=== PATIENT | male | born 1985 | race Caucasian/White ===

== ENCOUNTER → 2021-05-11 | Outpatient (CLI) | payer BC ==
--- NOTE | 2021-05-12 05:47 | MR ---
EXAMINATION TYPE: MR iac wo/w con DATE OF EXAM: 05/11/2021 COMPARISON: None HISTORY: Migraines, balance issues, vertigo for years. CONTRAST: Standard multiplanar, multisequence MRI departmental protocol images were obtained without contrast a nd with 15 mL intravenous Gadavist gadolinium contrast. Ventricles of normal size. There is no mass effect or midline shift. There is no sign of intracranial hemorrhage. Calvarium is intact. There is normal signal pattern of the brainstem. The corpus callosu m is intact. Sella turcica appears normal. There is no evidence of orbital mass. The internal auditory canals appear normal. There is no evidence of cerebellopontine angle mass. Acou stic nerve and vestibular nerve appear normal. Mastoid sinuses have normal signal pattern. No evidenc e of mastoiditis. Contrast images show no pathologic enhancement. IMPRESSION: Normal MRI scan of the brain. No evidence of focal posterior fossa abnormality.
== END | disposition home or self-care (01) ==
LOC: RADMRIMAIN 16:29
PROVIDERS: ATTEND Otolaryngology
DX: G43.909 Migraine, unspecified, not intractable, without status migrainosus (principal); R42 Dizziness and giddiness
CPT/HCPCS: 70553; A9585

== ENCOUNTER → 2023-03-13 | Outpatient (CLI) | payer BC ==
--- NOTE | 2023-03-13 17:13 | P.SLEEP ---
History of Present Illness H&P Date: 03/13/23 Chief Complaint: Irregular sleep schedule This is a very complicated case of a 27-year-old male patient who is coming in today with complaints of difficulties in falling asleep, staying asleep, waking up not rested, unable to maintain a regular sleep schedule. The patient is currently unemployed. He falls asleep at various times and he does not maintain a regular schedule. He has difficulties maintaining sleep. His sleep schedule and pattern is completely unpredictable without any certain pattern. I was able to review his sleep diary and I noted that the patient has been able to sleep on structures of 10 to 14 hours. At other times, has been sleeping only few hours. Nevertheless, I was not able to establish any pattern in his sleep schedule. The patient reports that he had a brain concussion back in 2010 and since then his sleep has been extremely disturbed and irregular. 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 He is morbidly obese. He has chronic anxiety and depression and migraines. He has been maintained on treatment for headache in addition to treatment for depression and is currently taking Pristiq 100 mg in the morning and amitriptyline 10 mg in the evening. The patient denies having any significant snoring. Denies waking up choking or gasping for air. He has issues with memory and concentration. At times he feels tired and yet other times he feels well and he is unable to fall asleep. He has tried various sleep aids in the past including Ambien without any benefit. More recently, he was given Nuvigil 150 mg in the morning by his primary care physician to maintain his daytime alertness. No history of any substance abuse. No history of smoking. Has not drank alcohol for the past 5 years. No restlessness in lower extremities. No issues with pain. He does have significant social anxiety and depression. Furthermore, the patient is undergoing a home sleep study. The reliability of this home sleep study is somewhat limited as the patient states that he is not sure whether he was sleeping at the time of the study. However, based on his home sleep study that was completed on 06/09/2021, he was found to have an AHI of 5 without any significant nocturnal oxygen desaturation. Noted the patient used to weigh 210 pounds at that time with a body mass index of 49.8. No repeat studies have been done on this patient since then Past medical history includes social anxiety, depression, migraines, asthma, brain concussion in 2011, obesity Past surgical history includes lipoma removal, wisdom teeth removal, Drug allergies not known. He is allergic to dust mites and cockroaches and cats Outpatient medication includes Ajovy 25 mg per 1 mL on a monthly basis, Pristiq 100 mg in the morning, Nuvigil 150 mg in the morning, Symbicort 160/4.52 puffs twice a day, buspirone 15 mg twice a day, cyclobenzaprine 10 mg in the evening, amitriptyline 10 mg at nighttime, albuterol HFA on an as-needed basis and rizatriptan 10 mg on an as-needed basis. Social history includes no smoking. No history of alcoholism. No history of substance abuse Family history is positive for migraine headaches and diabetes in the father and his father also has heart problems and asthma and restless leg. Review of system 14 point review of system was done and opacifies almost above history of present illness. Otherwise negative BP is 124/92 with a pulse of 107 and a respiration of 16 and a temperature 98.3. Oxygen saturation is 97% on room air oxygen. Swan score is at 1. His height is 6 feet and 3 inches. Temperature is 98.3. Saturation 97%. Size of the neck is 19 inches. General appears morbidly obese,, comfortable, no acute distress. He has significant crowding of the posterior pharynx with a Mallampati class IV. The patient appeared well nourished and normally developed. Vital signs as documented. Head exam is unremarkable. No scleral icterus or corneal arcus noted. Neck is without jugular venous distension, thyromegaly, or carotid bruits. Carotid upstrokes are brisk bilaterally. Lungs are clear to auscultation and percussion. Cardiac exam reveals the PMI to be normally sized and situated. Rhythm is regular. First and second heart sounds normal. No murmurs, rubs or gallops. Abdominal exam reveals normal bowel sounds, no masses, no organomegaly and no aortic enlargement. Extremities are nonedematous and both femoral and pedal pulses are normal. Examination of the skin revealed no evidence of signif icant rashes, suspicious appearing nevi or other concerning lesions. Neurologically, the patient is awake and alert and the patient does not have any focal neurological deficit. Cranial nerves are essentially intact. Assessment Irregular sleep wake syndrome Mild obstructive sleep apnea with an AHI of 5 based on the study that was done in 2021, home sleep study Morbid obesity with a body weight of 130 pounds and a BMI of about 45 Chronic social anxiety and depression Migraines Bronchial asthma History of brain concussion Plan This patient has an irregular sleep-wake syndrome and this includes irregular periods of sleep and wakefulness and this obviously is disrupting his normal daily sleep-wake cycle. It is caused by brain dysfunction and I am wondering whether his previous brain concussion has contributed to his problem and for now the patient has issues with insomnia and frequent daytime napping and he is scheduled remains extremely irregular. He does have a mild obstructive sleep apnea which does not seem to be the main problem in this case. The goal of the treatment is to return to normal sleep-wake cycle. Based on that, I had a lengthy discussion with the patient. I asked him to set up a regular daytime schedule of activities of mealtime and I asked him not to stay in bed during the day. I sent him in a sleep schedule from 11 PM till 7 AM in the morning. Out of the schedule, the patient does not have to be in bed or take any naps. Using bright light therapy in the morning and taken melatonin at bedtime may help. I do not see the need for a sleep study. He is going to maintain a sleep diary and is going to see him back in a month time in follow-up. Continue Nuvigil for daytime stimulation. Will continue to follow. Sleep Note - Sleep Note Sleep Note: Temperature: Pulse Rate: Respiratory Rate: Blood Pressure: SpO2: Height: Weight: BMI: Neck Circumference:
== END ==
LOC: 3 N SLEEP 13:07
PROVIDERS: ATTEND Internal Medicine Critical Care Medicine
DX: G47.33 Obstructive sleep apnea (adult) (pediatric) (principal); E66.01 Morbid (severe) obesity due to excess calories; F41.8 Other specified anxiety disorders; F32.A Depression, unspecified; G43.909 Migraine, unspecified, not intractable, without status migrainosus; G47.23 Circadian rhythm sleep disorder, irregular sleep wake type; J45.909 Unspecified asthma, uncomplicated; Z68.42 Body mass index [BMI] 45.0-49.9, adult; Z91.09 Other allergy status, other than to drugs and biological substances; Z91.048 Other nonmedicinal substance allergy status; Z87.820 Personal history of traumatic brain injury
CPT/HCPCS: 99211

== ENCOUNTER → 2023-09-10 | Outpatient (CLI) | payer BC ==
--- NOTE | 2023-09-10 15:46 | US ---
EXAMINATION TYPE: US extremity nonvasc mass RT DATE OF EXAM: 09/10/2023 COMPARISON: NONE CLINICAL INDICATION: Male, 38 years old with history of R22.41 LOCALIZED SWELLING, MASS AND LUMP, RIG HT LO; Hx lipomas TECHNIQUE: several images taken at patients palpable areas FINDINGS: there are no discrete abnormalities at patients areas of concern. There is a small area of edema/ interstitial fluid in the subcutaneous tissue in the area surrounding the patients palpable areas. No peripheral color Doppler flow to suggest infection. IMPRESSION: Irregular shaped area of subcutaneous edema/fluid, correlate for signs and symptoms of i nfection. Consider short-term follow-up to ensure resolution.
== END | disposition home or self-care (01) ==
LOC: RADUSWWP 15:03
PROVIDERS: ATTEND Family Medicine
DX: R22.41 Localized swelling, mass and lump, right lower limb (principal); R60.0 Localized edema

== ENCOUNTER → 2023-10-24 | Outpatient (CLI) | payer BC ==
--- NOTE | 2023-10-24 12:30 | US ---
EXAMINATION TYPE: US extremity nonvasc mass RT DATE OF EXAM: 10/24/2023 COMPARISON: Ultrasound 09/10/2023 CLINICAL INDICATION: Male, 38 years old with history of R22.41 LOCALIZED SWELLING, RIGHT LOWER EXT; p atient has h/o lipoma removal at right ross 15+years ago, patient has skin discoloration at palpable on right ross, US 6 weeks ago showed fluid collection, reassess today, patient states no change, no p ain, no fever TECHNIQUE: Soft tissue right leg scan FINDINGS/Impression: 1.2 x 1.0cm complex fluid collection that tracts to skin line. Similar to prior exam. Echogenic focus is seen within complex collection. This is new from prior exam. No surrounding hyperemia identified. Etiologies include seroma versus hematoma with abscess not excluded.
== END | disposition home or self-care (01) ==
LOC: RADUSWWP 12:04
PROVIDERS: ATTEND Surgery
DX: R22.41 Localized swelling, mass and lump, right lower limb (principal)

== ENCOUNTER → 2023-11-23 | Outpatient (CLI) | payer BC ==
--- NOTE | 2023-11-30 15:42 | CT ---
EXAMINATION TYPE: CT lower extremity RT wo/w con CT DLP: 2603.9 mGycm, Automated exposure control for dose reduction was used. DATE OF EXAM: 11/23/2023 4:55 PM COMPARISON: Right lower extremity ultrasound 10/24/2023, 09/10/2023 CLINICAL INDICATION:Male, 38 years old with history of R22.41 SWELLING, MASS AND LUMP, RIGHT LOWER LI MB; PHH, Swelling, mass and lump in right lower limb tib/fib TECHNIQUE: Axial images were obtained of the right lower extremity from the distal thigh downward wit hout and with the use of IV contrast. Approximately 100 mL Isovue 300 was injected intravenously. Add itional coronal and sagittal reformatted images and soft tissue and bone window were obtained for rev iew. 3-D reconstruction was created on a separate workstation. FINDINGS: There is no evidence of acute fracture, subluxation, or dislocation. Remote tibial tuberos ity avulsion fracture. Tiny posterior calcaneal enthesophyte. No significant soft tissue swelling or joint effusion is identified. Sclerotic focus within the proximal fibula representing a benign bone i sland. No focal muscular atrophy or edema is identified. No radiopaque foreign body identified. Withi n the medial subcutaneous tissues of the right mid tibial region is a 1.3 x 0.9 cm nonenhancing fluid with central 3 mm calcification (series 4, image 128). There is a tract that extends to the skin nancy face. The main portion of the collection is approximately 6 mm below the skin surface. A second 0.7 c m similar appearing lesion identified within the medial right mid tibial region subcutaneous tissues also demonstrating a central calcification (series 7, image 111). The visualized arterial vasculature is patent. IMPRESSION: There are 2 similar-appearing patchy curvilinear opacities within the medial left mid tibial obtainin g soft tissues with central punctate calcification. No abnormal enhancement identified. They are nons pecific with a variety of etiologies including trauma, vascular, autoimmune, metabolic, or neoplasm v ersus other. [facility], , 11/30/2023 3:40 PM
== END | disposition home or self-care (01) ==
LOC: RADCTMAIN 15:37
PROVIDERS: ATTEND Surgery
DX: R91.8 Other nonspecific abnormal finding of lung field (principal)